=== PATIENT | female | born 1975 | race Caucasian/White ===

== ENCOUNTER 2020-09-23 11:32 | Emergency (ER) | payer BC ==
[~2020-09-23] VITALS: Ht 160 cm; Wt 90.7 kg
[2020-09-23] MEDS ORDERED: BIRTH CONTROL (11:48)
[2020-09-23] MEDS ORDERED: TRIA15CR3 TOP (12:06)
== END 2020-09-23 13:16 | disposition home or self-care (01) ==
LOC: ER 11:32
DX: L24.0 Irritant contact dermatitis due to detergents (principal); Z91.018 Allergy to other foods
CPT/HCPCS: 99282

== ENCOUNTER → 2021-02-28 | Outpatient (CLI) | payer OTHER ==
[~2021-02-28] MED LIST: BIRTH CONTROL; TRIA15CR3 TOP
[2021-02-28 14:43] LABS: C DIFFICILE DNA NEGATIVE (Negative)
== END ==
LOC: LAB 07:00 → LAB SHORT 07:00
PROVIDERS: Physician Assistant
DX: R19.7 Diarrhea, unspecified (principal); Z91.018 Allergy to other foods
CPT/HCPCS: 87015; 87045; 87046; 87177; 87205; 87209; 87328; 87329; 87338; 87493; 87899

== ENCOUNTER → 2021-04-12 | Outpatient (CLI) | payer OTHER ==
[2021-04-13 14:46] LABS: Adenovirus F 40/41 Not Detected (NOT DETECT); Astrovirus Not Detected (NOT DETECT); Campylobacter Sp Not Detected (NOT DETECT); Cryptosporidium Not Detected (NOT DETECT); Cyclospora Cayetanensis Not Detected (NOT DETECT); E. Coli O157 Not Detected (NOT DETECT); Entamoeba Histolytica Not Detected (NOT DETECT); Enteroaggregative E. coli-EAEC Not Detected (NOT DETECT); Enteropathogenic E. coli-EPEC Detected (NOT DETECT); Enterotoxigenic E. coli-ETEC Not Detected (NOT DETECT); Giardia Lamblia Not Detected (NOT DETECT); Norovirus GI/GII Not Detected (NOT DETECT); Plesiomonas Shigelloides Not Detected (NOT DETECT); Rotavirus A Not Detected (NOT DETECT); Salmonella Sp Not Detected (NOT DETECT); Sapovirus Not Detected (NOT DETECT); Shiga Toxin-prod E. coli-STEC Not Detected (NOT DETECT); Shigella/Enteroin E. coli-EIEC Not Detected (NOT DETECT); Vibrio Cholerae Not Detected (NOT DETECT); Vibrio Sp Not Detected (NOT DETECT); Yersinia Enterocolitica Not Detected (NOT DETECT)
== END | disposition home or self-care (01) ==
LOC: LAB SHORT 22:00
PROVIDERS: Internal Medicine Gastroenterology
DX: R19.7 Diarrhea, unspecified (principal)
CPT/HCPCS: 0097U